=== PATIENT | male | born 1995 | race Caucasian/White ===

== ENCOUNTER 2019-01-30 16:18 | Emergency (ER) | payer MEDICAID, SELFPAY ==
[2019-01-30 16:34] VITALS: BP 159/99; PULSE 117; RESP 16; TEMP 37.2; O2SAT 97
[2019-01-30 16:38] VITALS: RESP 16
--- NOTE | 2019-01-30 16:50 | ED.GENADUL_ITS ---
Discharge Plan Disposition Patient Disposition: HOME Condition: Stable Discharge Details Chief Complaint: GenMedical Clinical Impression: Cough, Vomiting and diarrhea Primary Care Provider: Jf Ivory ED Provider: Hanna Tipton Home Meds and New Rx's Prescriptions: New ondansetron 4 mg tablet,disintegrating 4 mg PO Q8H PRN (Reason: nausea and vomiting) Qty: 6 RF: 0 Continued acetaminophen [Tylenol Extra Strength] 500 mg Tablet 500 mg PO Q6H PRNRF: 0 ibuprofen 600 mg Tablet 600 mg PO TID RF: 0 Discharge Instructions Instructions: Acute Nausea and Vomiting (ED), Acute Diarrhea (ED), Viral Syndrome (ED), Acute Cough (ED) Additional Instructions: Please return immediately to the emergency department if you develop any new or worsening symptoms or if you become otherwise concerned. It is extremely important that you make an appointment to be seen in follow-up for this visit as soon as possible by your primary care doctor. Stand Alone Forms: School Release Referrals: Jf Ivory MD [Primary Care Provider] - Discharge Data Discharge Date/Time-TO BE ENTERED AT DEPARTURE: 01/30/19 18:50 Medical Decision Making Francesco Pack is a 23 y/with history ofo man obesity and anxiety who presented to the emergency department with 5 days of cough, sore throat now resolved, ear pain, vomiting, and diarrhea now resolved. On exam patient is very well- appearing. Mildly tachycardic, otherwise benign cardiopulmonary exam. Benign abdominal exam. Concern for likely viral illness less likely pneumonia. Exam/history is not consistent with meningitis, acute intracranial process, Alexx's angina or other deep space infection, sepsis, ACS, PE. Plan for chest x-ray, flu swab, p.o. Zofran. Patient drinking cups of water in the emergency department without issue prior to receiving Zofran. X-ray flu swab negative. Patient has continued to drink water in the emergency department without issue. He reports that he feels very well after Zofran and would like to go home. He requests a note for school. I had a lengthy discussion with the patient regarding return to emergency department precautions, and importance of outpatient follow-up with his PCP. Patient verbalized understanding of the plan and is amenable. HR 108 at d/c, which Pt reports is his baseline, stating my heart rate is always between 100 and 120 even at rest. Medical Records Medical records reviewed: Yes I reviewed the patient's medical records. Imaging Data Radiologic Study: Attestation: I personally reviewed and interpreted this imaging study as follows: Radiologist's impression: XR of the chest, 2 views. COMPARISON: No relevant prior studies available. FINDINGS: The cardiomediastinal silhouette and pulmonary vasculature are within normal limits. The lungs are clear. No pleural effusion or pneumothorax is identified. IMPRESSION: No acute process. Lab Data Lab results reviewed: Yes I reviewed the patient's lab results. Negative flu swab HPI General Mode of arrival: ambulatory . Date/Time Provider Initiated Documentation: 01/30/19 16:36 . Limitations to Documentation: no limitations . Information obtained by: patient . HPI Narrative: Francesco Pack is a 23 y/o man with history of anxiety, obesity presents emergency department with cough, vomiting, diarrhea, sore throat, right-sided ear pain over the past 5 days. Patient reports that he has been able to hold down fluids without issue, but has felt nauseous when trying to eat food. He has had 2-3 episodes of loose stools, but this seems to have resolved. Sore throat present during initial phase of illness, but has been resolved for the past 2-3 days. He denies any current pain other than ear pain. No fevers, no shortness of breath, no rash. Related Data Home Medications Medication Instructions Recorded Confirmed acetaminophen [Tylenol Extra 500 mg PO Q6H PRN 01/30/19 01/30/19 Strength] ibuprofen 600 mg PO TID 01/30/19 01/30/19 ondansetron 4 mg PO Q8H PRN #6 tab 01/30/19 Previous Rx's Medication Instructions Recorded ondansetron 4 mg PO Q8H PRN #6 tab 01/30/19 Allergies Allergy/AdvReac Type Severity Reaction Status Date / Time No Known Allergies Allergy Unverified 01/30/19 16:37 General Stated Complaint: GenMedical SUSY: 3 Review of Systems Review of Systems Constitutional: denies fevers Eyes: denies eye pain ENT: denies facial pain, dental pain, reports ear pain, sore throat now resolved Cardiovascular: denies chest pain, edema Respiratory: denies SOB, reports cough GI: denies abdominal pain, reports vomiting, diarrhea now resolved : denies flank pain MSK: denies back pain, neck pain, arthralgias, myalgias Skin: denies rash Neuro: denies numbness, weakness, , reports intermittent mild headache not currently occurring [facility] Medical History Asthma Obesity Family History Mother No problems noted. Father Essential hypertension Heart disease Grandfather Essential hypertension Heart disease Hyperlipidemia Myocardial infarction Grandfather No problems noted. Grandmother No problems noted. Grandmother No problems noted. Maternal History Diabetes Neoplasm Social History Smoking/Tobacco Use Status: Never Drug use: Never Do you feel safe in your relationship?: Yes Exam Narrative Exam Narrative: Constitutional: well and yrn-mfywx-zyhzdujpa, pleasant, conversing normally HENT: head atraumatic/normocephalic/normal inspection, mucous membranes moist normal posterior pharynx,, normal voice, handling secretions without issue, no intraoral lesion, uvula midline, normal external ears, normal TMs and canals bilaterally, no mastoid tenderness bilaterally, no TMJ tenderness bilaterally Eyes: conjunctiva normal, sclera normal, pupils 3mm b/l Neck: no stridor, normal ROM, trachea midline Chest: normal inspection Resp: normal work of breathing, LCTAB Cardio: HR 104, normal rhythm, no murmur appreciated GI: abdomen soft, non-tender, non-distended Back: normal inspection, no rash Skin: warm, dry, normal color, no rash Neuro: alert, not altered, grossly non-focal, normal tone Ext: no edema Psych: normal mood, normal affect, normal behavior Course Vital Signs Temperature 37.2 C 01/30/19 16:34 Pulse 117 H 01/30/19 16:34 Respiratory Rate 16 01/30/19 16:34 Blood Pressure 159/99 H 01/30/19 16:34 Pulse Oximetry 97 01/30/19 16:34 Temperature 37.2 C 01/30/19 16:34 Temperature Source Temporal Artery Scan 01/30/19 16:34 Pulse 117 H 01/30/19 16:34 Respiratory Rate 16 01/30/19 16:38 Respiratory Effort Non-Labored 01/30/19 16:38 Respiratory Depth Normal 01/30/19 16:38 Respiratory Pattern Normal 01/30/19 16:38 Blood Pressure 159/99 H 01/30/19 16:34 Pulse Oximetry 97 01/30/19 16:34 Pain Level 5 01/30/19 16:34
[2019-01-30 17:23] VITALS: PULSE 117
--- NOTE | 2019-01-30 17:35 | DI.RAD_ITS ---
SYMPTOM/DIAGNOSIS: COUGH PA AND LATERAL CHEST: Comparison is made with 04/18/08. The heart is normal in size. The lungs are clear. The mediastinal structures and pleura appear intact. CONCLUSION: Normal chest.
--- NOTE | 2019-01-30 17:54 | DI.VRAD_ITS ---
EXAM: XR Chest, 2 Views EXAM DATE/TIME: 01/30/2019 5:15 PM CLINICAL HISTORY: 23 years old, male; Signs and symptoms; Cough TECHNIQUE: XR of the chest, 2 views. COMPARISON: No relevant prior studies available. FINDINGS: The cardiomediastinal silhouette and pulmonary vasculature are within normal limits. The lungs are clear. No pleural effusion or pneumothorax is identified. IMPRESSION: No acute process. Dictated and Authenticated by: Kris Gregg MD. Ordering:SKIP Ferreira MD
== END 2019-01-30 18:50 | disposition home or self-care (01) ==
PROVIDERS: Emergency Provider Student in an Organized Health Care Education/Training Program; PCP Pediatrics
DX: R05 Cough (principal); R11.2 Nausea with vomiting, unspecified; R19.7 Diarrhea, unspecified; J02.9 Acute pharyngitis, unspecified; H92.01 Otalgia, right ear
CPT/HCPCS: 87449; 99283; 71046

== ENCOUNTER 2019-03-28 01:25 | Outpatient (CLI) | payer MEDICAID, SELFPAY ==
[2019-03-28 07:58] LABS: HCT 45.2 % (40.0-50.0); HGB 15.8 g/dL (13.5-17.5); Mean Corpuscular Volume 85.9 fL (80-95); Mean Platelet Volume 11.4 fL (8.0-11.0); Platelet Count 174 x1000/uL (130-400); RBC 5.26 m/cumm (4.50-6.00); RBC Distribution Width 13.9 % (11.8-14.1); White Blood Cell Count 6.13 k/cumm (4.4-10.8)
[2019-03-28 08:40] LABS: Hemoglobin A1C 5.1 % (4.5-6.2)
[2019-03-28 08:46] LABS: ALT 153 U/L (12-78); AST 59 U/L (15-37); Albumin 3.6 g/dL (3.4-5.0); Alkaline Phosphatase 78 U/L (46-116); Anion Gap 9.4 mmol/L (3-11); BUN 13 mg/dL (7-18); Bilirubin, Total 0.6 mg/dL (0.2-1.0); CO2 28.6 mmol/L (21.0-32.0); CREATININE 0.89 mg/dL (0.70-1.30); Calcium 8.9 mg/dL (8.5-10.1); Chloride 104 mmol/L (98-107); Glucose 87 mg/dL (70-100); Potassium 3.9 mmol/L (3.5-5.1); Sodium 142 mmol/L (136-145); Total Protein 6.8 g/dL (6.4-8.2)
== END 2019-03-28 01:45 ==
PROVIDERS: PCP Family Medicine; Visit Provider Family Medicine
DX: L83 Acanthosis nigricans (principal); R94.5 Abnormal results of liver function studies
CPT/HCPCS: 36415; 80053; 85027; 83036

== ENCOUNTER 2019-04-24 00:52 | Outpatient (CLI) | payer MEDICAID, SELFPAY ==
--- NOTE | 2019-04-24 08:03 | DI.US_ITS ---
SYMPTOM/DIAGNOSIS: ELEVATED LFT'S. R94.5 ABDOMEN ULTRASOUND: The aorta is unremarkable. The vena cava is obscured. The liver is enlarged and is echogenic consistent with fatty infiltration. The gallbladder wall is 2.8 mm. thick. No Castro's sign was elicited. There is no evidence of ductal dilatation. The pancreas is obscured by bowel gas. The spleen measures 10.7 cm. in length. The kidneys are unremarkable. There is no evidence of abdominal free fluid. SUMMARY: An enlarged fatty liver is demonstrated. There is gallbladder wall thickening without evidence of stones or findings to suggest acute cholecystitis.
[2019-04-24 10:08] LABS: Iron 112 ug/dL (50-175); Total Iron Binding Capacity 370 ug/dL (250-450); Transferrin Sat 30 % (20-55)
[2019-04-24 10:22] LABS: Ferritin 162 ng/mL (8-388)
[2019-04-25 11:28] LABS: HBs Antibody, Qual Negative; HBs Antibody, Quant <3.1 mIU/mL; Hepatitis B Core Antibody Negative (NEGAT); Hepatitis B surface Ag Negative (NEGAT); Hepatitis C Ab w Rflx HCV PCR Negative (NEGAT)
== END 2019-04-24 01:12 ==
PROVIDERS: PCP Family Medicine; Visit Provider Family Medicine
DX: R94.5 Abnormal results of liver function studies (principal); K76.0 Fatty (change of) liver, not elsewhere classified; R16.0 Hepatomegaly, not elsewhere classified; K82.8 Other specified diseases of gallbladder
CPT/HCPCS: 36415; 86704; 86706; 86803; 87340; 76700; 82728; 83540; 83550

== ENCOUNTER 2019-04-30 08:04 | Outpatient (CLI) | payer MEDICAID, SELFPAY ==
[2019-04-30 16:33] LABS: TSH (W/Ref FT4) 1.44 uIU/mL (0.358-3.74)
[2019-05-03 11:15] LABS: IgA 124 mg/dL (85-499); Interpretation SEE COMMENTS; Tissue Transglutaminase IgA <1.2 U/mL (<4.0)
== END 2019-04-30 08:24 ==
LOC: LBO 08:22 → LOS 14:53
PROVIDERS: PCP Family Medicine; Visit Provider Family Medicine
DX: R16.0 Hepatomegaly, not elsewhere classified (principal); R94.5 Abnormal results of liver function studies
CPT/HCPCS: 36415; 82784; 83516; 84443

== ENCOUNTER 2021-05-12 04:27 | Outpatient (CLI) | payer MEDICAID, SELFPAY ==
[2021-05-12 09:33] LABS: Hemoglobin A1C 5.1 % (<5.7)
[2021-05-12 09:49] LABS: Calculated LDL 102 mg/dL (<100); Cholesterol 162 mg/dL (<200); HDL Cholesterol 38 mg/dL (40-60); Triglyceride 114 mg/dL (<150)
== END 2021-05-12 04:28 | disposition home or self-care (01) ==
LOC: LBO 04:27
PROVIDERS: PCP Nurse Practitioner Family; Visit Provider Nurse Practitioner Family
DX: Z13.1 Encounter for screening for diabetes mellitus (principal); Z13.220 Encounter for screening for lipoid disorders
CPT/HCPCS: 36415; 80061; 83036

== ENCOUNTER → 2022-07-12 17:50 | Outpatient (CLI) | payer MEDICAID, SELFPAY ==
--- NOTE | 2022-07-12 18:00 | DI.RAD_ITS ---
Exam(s) XR LUMBAR SPINE COMPLETE EXAM: XR LUMBAR SPINE COMPLETE CLINICAL HISTORY: vertebral alignment.lumbar back pain, ,m54.50 TECHNIQUE: COMPARISON: No exams were available for comparison FINDINGS: Eight views were obtained. There is a mild biconvex thoracolumbar scoliosis. No evidence of spondyl olysis or spondylolisthesis. There is a question of loss of height of L5-S1 intervertebral disc spac e raising the possibility of disc degeneration. Otherwise intervertebral disc spaces are fairly well maintained. No evidence of acute fracture. IMPRESSION: Question degenerative disc disease at L5-S1. RADIATION DOSE DELIVERED: Total DLP
--- NOTE | 2022-07-12 19:04 | DI.VRAD_ITS ---
PROCEDURE INFORMATION: Exam: XR Lumbosacral Spine Exam date and time: 07/12/2022 6:10 PM Age: 27 years old Clinical indication: Low back pain; Patient HX: Vertebral alignment TECHNIQUE: Imaging protocol: Radiologic exam of the lumbosacral spine. Views: 4 or 5 views. COMPARISON: No relevant prior studies available. FINDINGS: Mild thoracolumbar dextrocurvature. Questionable right pars interarticularis defect at L4-L5. No other pars interarticularis defects appreciated. Preserved lumbar lordosis. Decreased intervertebral disc spaces at T12-L1, L1-L2, L2-L3, and L5-S1. Remainder of the disc spaces appear well preserved. Tiny multilevel anterior osteophytes. Vertebral body heights are well preserved. Spinal canal is patent. No acute fracture, dislocation, or aggressive osseous lesion. No acute soft tissue findings. IMPRESSION: 1. Mild thoracolumbar dextrocurvature with mild multilevel degenerative changes, detailed above. 2. No acute skeletal pathology. Dictated and Authenticated by: Zachery Ruiz MD. Ordering:TONO Wright MD
== END ==
PROVIDERS: PCP Nurse Practitioner Family; Visit Provider Nurse Practitioner Family
DX: M47.815 Spondylosis without myelopathy or radiculopathy, thoracolumbar region; M47.816 Spondylosis without myelopathy or radiculopathy, lumbar region; M47.817 Spondylosis without myelopathy or radiculopathy, lumbosacral region
CPT/HCPCS: 72110

== ENCOUNTER 2022-10-06 04:42 | Outpatient (CLI) | payer MEDICAID, SELFPAY ==
[2022-10-06 12:54] LABS: Abs Immature Grans 0.03 10^3/uL (0.0-0.06); Absolute Basophil Count 0.06 10^3/uL (0.0-0.2); Absolute Eosinophil Count 0.11 10^3/uL (0.0-0.7); Absolute Lymphocyte Count 1.73 10^3/uL (1.2-3.4); Absolute Neutrophil Count 3.22 10^3/uL (1.2-6.7); Basophils % 1.1; HCT 47.2 % (40.0-50.0); HGB 15.9 g/dL (13.5-17.5); Immature Grans % 0.6; Lymphocytes % 31.7; MCH 29.8 pg (27.0-33.0); MCHC 33.7 % (32.0-36.0); MCV 89 fL (80-95); MPV 11.7 fL (8.0-11.0); Monocytes % 5.5; Neutrophils % 59.1; Platelet Count 221 10^3/uL (130-400); RBC 5.33 10^6/uL (4.36-5.78); RDW 13.7 % (11.8-14.1); RDW-SD 43.9 fL; WBC 5.45 10^3/uL (4.4-10.8)
[2022-10-06 13:07] LABS: Hemoglobin A1C 5.1 % (<5.7)
[2022-10-06 13:13] LABS: ALT 96 U/L (16-63); AST 44 U/L (15-37); Albumin 3.6 g/dL (3.4-5.0); Alkaline Phosphatase 71 U/L (46-116); Anion Gap 1.5 mmol/L (3-11); BUN 13 mg/dL (7-18); Bilirubin, Total 0.5 mg/dL (0.2-1.0); CO2 32.5 mmol/L (21.0-32.0); Calcium 9.6 mg/dL (8.5-10.1); Calculated LDL 112 mg/dL (<100); Chloride 105 mmol/L (98-107); Cholesterol 171 mg/dL (<200); Estimated GFR 107.12 (mL/min/1.73m2); Glucose 88 mg/dL (74-106); HDL Cholesterol 43 mg/dL (40-60); Potassium 4.1 mmol/L (3.5-5.1); Sodium 139 mmol/L (136-145); TSH (W/Ref FT4) 1.11 uIU/mL (0.36-3.74); Total Protein 7.3 g/dL (6.4-8.2); Triglyceride 83 mg/dL (<150)
== END 2022-10-06 04:43 | disposition home or self-care (01) ==
LOC: LOS 04:42
PROVIDERS: PCP Nurse Practitioner Family; Visit Provider Nurse Practitioner Family
DX: E66.01 Morbid (severe) obesity due to excess calories (principal); H53.9 Unspecified visual disturbance; R03.0 Elevated blood-pressure reading, without diagnosis of hypertension; Z68.43 Body mass index [BMI] 50.0-59.9, adult
CPT/HCPCS: 36415; 80053; 80061; 83036; 84443; 85025

== ENCOUNTER → 2022-10-07 00:27 | Outpatient (CLI) | payer MEDICAID, SELFPAY ==
--- OUTSIDE RECORDS SUMMARY | 2022-10-07 00:43 | XMS_ITS | Encounter Summary ---
:1995 Author Care Team Providers Name Role Phone Garry Walden Primary Care Provider [phone] Garry Walden FORENSICS ANALYST Primary Care Provider [phone] Garry Walden Referring Provider [phone] Reason for Visit pain in feet Assessment and Plan 1. Osteoarthritis of joint of right ank le and/or foot Assessment: Review x-rays taken of the right and left foot demonstrate significant tarsal tarsal joint osteoarthritic destruction in the right and left foot. There are large calcaneal spurs noted at th e Achilles tendon insertions bilaterally . Clinical examination correlates with these findings. Plan: Recommendations were given for thi s patient to obtain custom orthotics to control tarsal joint motion and provide medial longitudinal arch support. Follow-up in this clinic when these orthotics have been fabricated through [employer]. ? custom foot orthotic 2. Osteoarthritis of left foot 3. Calcaneal spur of right foot 4. Calcaneal spur of left foot Discussion Note: None recorded.Patient educational handouts: No information available. Plan of Care Reminders Provider Appointments None recorded. ? ? Lab None recorded. ? ? Referral None recorded. ? ? Procedures None recorded. ? ? Surgeries None recorded. ? ? Imaging None recorded. ? ? Medications Name Start Date ? ? acetaminophen ? extra strength, 500 mg, every 6 hours as needed cyclobenzaprine ? 10mg tablet, take at bedtime as needed for muscle spa sms ibuprofen 600 mg tablet ? Take 1 tablet 3 times a day by oral route. lidocaine 5 % medicated patch and dimethicone 5 % topi saul cream ? daily Medications Administered None recorded. Vitals None recorded. Results Lab Results None recorded. Allergies Code Code System Name Reaction Severity Onset NKDA ? ? ? Problems Name Status Onset Date Source ? Osteoarthritis of Joint of Right Ankle And/or Foot Active 08/11/2022 ? Osteoarthritis of Left Foot Active 08/11/2022 ? Calcaneal Spur of Right Foot Active 08/11/2022 ? Calcaneal Spur of Left Foot Active 08/11/2022 ? Morbid Obesity Active ? ? Non-alcoholic Fatty Liver Active ? ? Acanthosis Nigricans Active ? ? Elevated Blood Pressure Active ? ? Bilateral Hyperacusis of Ears Active ? ? Procedures Date Name Performed by ? 08/03/2022 XR, Foot, 3 or More View [facility] - Radiology [address] [place] [address] (Work Place) 08/03/2022 XR, Foot, 3 or More View [facility] - Radiology [address] [place] [address] (Work Place) Vaccine List Vaccine Type Tdap 05/09/2022 Social History Tobacco Smoking Status Never Smoker What is your code status? 0 Family History Relation Problem Onset Age of Age Notes Father Hypertensive disorder (No N/A heart disease Information) Paternal Hyperlipidemia (No N/A hypertension and Grandfather Information) heart disease a nd myocardial infarction Functional Status Unknown. Past Encounters 08/11/2022 Osteoarthritis of Joint of Right Ankle A nd/or Foot; Osteoarthritis of Left Foot; Calcaneal Spur of Right Foot; Calcaneal Spur of Left Foot Isaiah Thao, DPM: [address] [place] [address], Ph. History of Present Illness Note: <div>This is a 27-year-old male patient who is seen today for prolonged period of weightbearing pain in the right and left foot with activities of daily living. He endorses no specific history of injury or trauma to his lower extremities. He has persistent pain within the arches bilaterally both dorsally and plantarly. He has tried ndia-spx-ekaznae liners for his shoes and orthotic supports that have been ineffective in providing relief.</div> Review of Systems ? Notes: <div>All negative except for HPI</div> Physical Exam ? Notes: <div>Constitutional: well de veloped, appears stated age, well nourished, no acute distress, alert and or iented to time, place and person, weight-morbidly obese</div><div>
</div><d iv>Psychiatric: Mental status-mood and affect normal, behavior normal,cogn ition and thought content normal, fund of knowledge is intact, attenti on span and ability to concentrate is normal, able to articulate well with norm al speech and language</div><div>
</div ><div>Respiratory: Non labored respiratory effort, chest-symmetrical ex pansion, no respiratory distress, no adventitious sounds, no shortness of ashley th, respiration rate of 16</div><div>
</div><div> Vascular: </div><div>Dorsalis pedis and posterior tibial pulses are full and p alpable bilaterally. The feet are warm to touch with 1-2 second vascular zheng ling time at the digit levels. Digital hair is present bilaterally. No veno us varicosities are noted on the lower legs, ankles or feet. No ischemia is noted within the legs or pedal structures.</div><div>
</ div><div>Lymphatic: no lymphedema noted</div><div>
</div><d iv>Dermatologic: There is no evidence of any breaks in skin integrity or skin lesions on the lower legs, ankles or feet. There is normal skin texture and turgor on all extremities surfaces. There is no evidence of cellulitic or lymphangitic activities on the digits, feet, ankles or lower legs.</div>< div>
</div><div>Neurologic: Alert and oriented times 3, concentrating abili ty not decreased, symmetrical bulk, strength and tone in the lower extremitie s, coordination is normal.</div><div>Sensory examination-light touch inta ct on the L4-S1 dermatomes</div><div>Motor examination-full intact</div ><div>Coordination and tremors-no intentional or resting tremors are noted, n o adventitious movement noted</div><div>Muscle fasciculations-no fasciculat ions noted in the lower extremity muscles</div><div>Atrophy-no atrophy noted in the intrinsic muscles of the feet, lower legs or thighs & lt;/div><div>
</div><div>Musculoskeletal: Able to rise from a chair and get up onto the orthopaedic examination table, mild osteoarthritic change can be palpated on the dorsal tarsal joints of the right and left foot with soft tiss ue effusion and osteophytic growth noted. Slight enlargement of the Achilles tendon insertions are noted on the posterior right and left calcaneal surfaces. There is no evidence of any metatarsophalangeal joint or tarsometatarsal denise nt pain on the right or left foot. There is a pes planus foot type on weightbe aring examination</div><div>
</div><div>Gait: Pronated gait type that is n on antalgic</div><div>This clinic note/operative note was created using [employer] voice recognition software. The note was reviewed by myself for p rimary content. There may be multiple small syntactical discrepancies an d errors due to the voice recognition limitations of the software-Dr. Thao.< /div><div>
</div>
--- OUTSIDE RECORDS SUMMARY | 2022-10-07 00:43 | XMS_ITS ---
:1995 Author Care Team Providers Name Role Phone FATIMAH MARIN Primary Care Provider [phone] FATIMAH MARIN Referring Provider [phone] FATIMAH MARIN DRY HOUSE OPERATOR Primary Care Provider [phone] Allergies Code Code System Name Reaction Severity Status Onset NKDA ? Medications Name Status Start Date Stop Date ? ? acetaminophen Active ? Not available extra strength, 500 mg, every 6 hours as needed acetaminophen 500 mg capsule Completed ? Take 2 capsules every 6 hours by oral route as needed. cyclobenzaprine Active ? Not available 10mg tablet, take at bedtime as needed for muscle spasms cyclobenzaprine 10 mg tablet Completed ? Take 1 tablet every day by oral route at bedtime. ibuprofen 600 mg tablet Active ? Not avai lable Take 1 tablet 3 times a day by oral route. lidocaine 0.5 %-me.salicyl 20 %-capsai 0.035 %-menth 5 % topical patch Completed ? 08/16/2022 Apply every 12 hours lidocaine 5 % medicated patch and dimethicone 5 % topical cream Active ? Not available daily Problems Name Status Onset Date Source ? [...] 08/03/2022 XR, Foot, 3 or [facility] - Radiology [address] [place] [id number] (Work Place) 08/03/2022 XR, Foot, [facility] or [facility] - [facility] [address] [place] [address] (Work Place) Results Lab Results None recorded. Past Encounters 08/11/2022 Osteoarthritis of Joint of Right Ankle A nd/or Foot; Osteoarthritis of Left Foot; Calcaneal Spur of Right Foot; Calcaneal Spur of Left Foot Isaiah Thao, DPM: [address] [place] [address], Ph. Social History Tobacco Smoking Status Never Smoker Vaccine List Vaccine Type Tdap 05/09/2022 Plan of Care Reminders Provider Appointments None recorded. ? ? Lab None recorded. ? ? Referral None recorded. ? ? Procedures None recorded. ? ? Surgeries None recorded. ? ? Imaging None recorded. ? ? Vitals None recorded.
--- NOTE | 2022-10-07 07:45 | DI.US_ITS ---
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 TECHNIQUE: Ultrasound carotids performed using grayscale, color-flow, and spectral Doppler imaging. COMPARISON: US US ABDOMEN from 04/24/2019 FINDINGS: CAROTID ARTERIES: Patent bilaterally with no evidence of obvious plaque at the carotid bifurcations a nd proximal internal carotid arteries. No prominent tortuosity evident in the ICAs in the upper neck . However, velocities in the distal left common carotid artery in the neck exhibit slightly elevated pe ak flow of 132 cm/sec. Peak systolic velocity in the right distal common carotid artery is 125 cm/sec Elevated velocity in the proximal right external carotid artery (168 cm/sec) is probably not conseque ntial. VERTEBRAL ARTERIES: The dominant left vertebral artery is patent and exhibits antegrade flow. Luminal diameter approxima tely 4 millimeters. The right vertebral artery appears to be a significantly thinner vessel Measurements: R Bulb: 108.1cm/s PS / 22.9cm/s ED R CCA: 124.7cm/s PS / 25.1cm/s ED R ECA: 168.4cm/s PS / 17.1cm/s ED R ICA Prox: 82.1cm/s PS / 21.4cm/s ED R ICA Mid: 108.5cm/s PS / 21.1cm/s ED R ICA Distal: 67.4cm/s PS /23.7cm/s ED R Vert: 49cm/s PS / 18.4cm/s ED R SVR: 0.9 R DVR: 0.8 L Bulb: 119cm/s PS / 15.6cm/s ED L CCA: PS / 15.4cm/s ED L ECA: 84.5cm/s PS / 24.3cm/s ED L ICA Prox: 100.7cm/s PS / 24.6cm/s ED L ICA Mid: 104.2cm/s PS / 27cm/s ED L ICA Distal: 89.9cm/s PS / 35.4cm/s ED L Vert: 54.2cm/s PS / 17.8cm/s ED L SVR: 0.9 L DVR: 1 IMPRESSION: Mildly elevated velocity demonstrated in the distal left common carotid artery of possible concern al though there is no obvious plaque evident at this level Left vertebral artery is dominant. The right vertebral artery appears to be a thin vessel. Slightly elevated velocity evident in proximal right external carotid artery which is of doubtful cli nical significance. Given the history here it may be prudent to perform CT angiography of the head and neck. Criteria for Carotid Stenosis: Normal: ICA PSV <125 cm/s no plaque or intimal thickening is visible. <50% stenosis: ICA PSV <125 cm/s and plaque or intimal thickening is visible. 50-69% stenosis: ICA PSV is 125-250 cm/s and plaque is visible. >70% stenosis to near occlusion: ICA PSV >250 cm/s with visible plaque and luminal narrowing. DATA REPOSITORY:
== END ==
PROVIDERS: PCP Nurse Practitioner Family; Visit Provider Nurse Practitioner Family
DX: H53.9 Unspecified visual disturbance (principal)
CPT/HCPCS: 93880

== ENCOUNTER → 2022-10-10 10:32 | Outpatient (CLI) | payer MEDICAID, SELFPAY ==
--- NOTE | 2022-10-10 08:15 | DI.CT_ITS ---
Exam(s) CT BRAIN NECK CTA EXAM: CT BRAIN NECK CTA CLINICAL HISTORY: Left eye blackouts/ US performed and CT recom... TECHNIQUE: Imaging Protocol: Axial CT angiography was performed with multi-slice acquisition and mu lti-planar and 3D reconstructions. CONTRAST MATERIAL: Intravenous: Omnipaque 350 Contrast volume:structured data in ml Intravenous: Omnipaque 350 Contrast volume:100 mL COMPARISON: No exams were available for comparison FINDINGS: CT Head W/O and W contrast: Ventricles and Extra axial spaces: Normal in size and morphology for the patient's age. Hemorrhage: None. Cerebral parenchyma: Normal. Midline shift: None. Brainstem/Cerebellum: Normal. Calvarium: Normal. Visualized Paranasal sinuses/Mastoids: Clear. Soft Tissues: Unremarkable. Enhancement: Normal. Exam is somewhat limited by patient body habitus. CTA Brain W: Internal Carotid Arteries: Petrous: Normal. Cavernous: Normal. Cerebral: Normal. Middle Cerebral Arteries: Right: No aneurysm, occlusion or significant stenosis. Left: No aneurysm, occlusion or significant stenosis. Anterior Cerebral Arteries: Right: No aneurysm, occlusion or significant stenosis. Left: No aneurysm, occlusion or significant stenosis. Posterior cerebral Arteries: Right: No aneurysm, occlusion or significant stenosis. Left: No aneurysm, occlusion or significant stenosis. Vertebral Arteries: Right: No aneurysm, occlusion or significant stenosis. Left: No aneurysm, occlusion or significant stenosis. Basilar Artery: No aneurysm, occlusion or significant stenosis. CTA Neck W: Common Carotid: Right: No visible plaque. No aneurysm, occlusion or significant stenosis. Left: No visible plaque. No aneurysm, occlusion or significant stenosis. External Carotid: Right: No aneurysm, occlusion or significant stenosis. Left: No aneurysm, occlusion or significant stenosis. Internal Carotid: Right: Tortuous distally. No aneurysm, occlusion or significant stenosis. Left: Tortuous distally. No aneurysm, occlusion or significant stenosis. Vertebral Artery: Right: Terminates in PICA. No aneurysm, occlusion or significant stenosis. No evidence of dissecti on. Left: Left vertebral artery is dominant. No aneurysm, occlusion or significant stenosis. No evidence of dissection. IMPRESSION: 1. Normal CTA examination of the [place] of [place]. 2. Unremarkable CT Head. 3. Normal CTA examination of the neck. RADIATION DOSE DELIVERED: 2,885.08mGy.cm Total DLP 2,885.08mGy.cm Total DLP DATA REPOSITORY: All CT scans at this facility are submitted to the National Radiology Data Registry (NRDR) Dose Index Registry (DIR) with the [employer] (ACR). RADIATION OPTIMIZATION: All CT scans at this facility use at least one of these dose optimization te chniques: automated exposure control; mA and/or kV adjustment per patient size (includes targeted exa ms where dose is matched to clinical indication); or iterative reconstruction.
== END ==
PROVIDERS: PCP Nurse Practitioner Family; Visit Provider Nurse Practitioner Family
DX: H53.9 Unspecified visual disturbance (principal)
CPT/HCPCS: 70496; 70498

== ENCOUNTER 2022-11-10 16:38 | Emergency (ER) | payer OTHER, SELFPAY ==
[2022-11-10 16:43] VITALS: BP 154/76; PULSE 68; RESP 16; TEMP 37.2; O2SAT 100
--- NOTE | 2022-11-10 17:00 | DI.RAD_ITS ---
Exam(s) XR WRIST LT COMPLETE EXAM: XR WRIST LT COMPLETE CLINICAL HISTORY: pain post fall. TECHNIQUE: 2D digital imaging was performed. COMPARISON: No exams were available for comparison FINDINGS: 3 views No evidence of fracture nor dislocation. No significant ulnar variance. Scaphoid unremarkable. Sca pholunate distance unremarkable. Bone density normal. No osseous lesions. No radiopaque foreign amalia dy. IMPRESSION: No significant osseous findings. DATA REPOSITORY: RADIATION DOSE DELIVERED:
--- NOTE | 2022-11-10 17:00 | DI.RAD_ITS ---
Exam(s) XR RIBS RT W PA LAT CHEST EXAM: XR RIBS RT W PA LAT CHEST CLINICAL HISTORY: right rib pain post fall TECHNIQUE: 2D digital imaging was performed. COMPARISON: CR XR CHEST 2V PA LATERAL from 01/30/2019 FINDINGS: Total = 5 views RIBS 3 VIEWS-right There are no obvious acute rib fractures evident. No lytic rib lesions identified. CXR- 2 VIEWS: No lung contusion or pneumothorax. There is no pleural effusion evident. Heart size is normal and there is no significant mediastinal widening. IMPRESSION: 1. No obvious rib fractures evident. Also no significant rib lesions. 2. No ipsilateral lung nor pleural abnormality evident. No pneumothorax. DATA REPOSITORY: RADIATION DOSE DELIVERED:
[2022-11-10] MEDS: Acetaminophen 325 MG TAB 650 MG PO (17:49)
--- NOTE | 2022-11-10 19:12 | NUR.NOTE ---
Pt to x-ray via w/c Nursing Note:
--- NOTE | 2022-11-10 19:43 | DI.VRAD_ITS ---
PROCEDURE INFORMATION: Exam: XR Left Wrist Exam date and time: 11/10/2022 7:15 PM Age: 27 years old Clinical indication: Other: Pain post fall TECHNIQUE: Imaging protocol: Radiologic exam of the Left wrist. Views: 3 or more views. COMPARISON: No relevant prior studies available. FINDINGS: Bones/joints: Normal. Soft tissues: Normal. IMPRESSION: No acute findings. Dictated and Authenticated by: Terence Butler MD. Ordering:DEVONTE Alvarado MD
--- NOTE | 2022-11-10 19:47 | DI.VRAD_ITS ---
PROCEDURE INFORMATION: Exam: XR Right Ribs Exam date and time: 11/10/2022 7:18 PM Age: 27 years old Clinical indication: Other: Right rib pain post fall TECHNIQUE: Imaging protocol: Radiologic exam of the Right ribs. Views: 2 views. COMPARISON: CR XR CHEST 2V PA LATERAL 01/30/2019 5:29 PM FINDINGS: Bones/joints: Normal. Soft tissues: Normal. IMPRESSION: No acute findings. PROCEDURE INFORMATION: Exam: XR Chest Exam date and time: 11/10/2022 7:18 PM Age: 27 years old Clinical indication: Other: Right rib pain post fall TECHNIQUE: Imaging protocol: Radiologic exam of the chest. Views: 2 views. COMPARISON: CR XR CHEST 2V PA LATERAL 01/30/2019 5:29 PM FINDINGS: Lungs: Clear lungs. Pleural spaces: No pleural effusion. No pneumothorax. Heart/Mediastinum: Normal heart size. Bones/joints: Thoracic spine degenerative disease. IMPRESSION: Clear lungs and pleural space. No acute disease. Dictated and Authenticated by: Terence Butler MD. Ordering:DEVONTE Alvarado MD
--- NOTE | 2022-11-10 19:59 | ED.GENADUL_ITS ---
Discharge Plan Disposition Patient Disposition: Home Condition: Stable Discharge Details Clinical Impression: Muscle strain of left wrist, Contusion of chest wall Primary Care Provider: Garry Walden ED Provider: Jenny Morin Home Meds and New Rx's Prescriptions: Continued magnesium oxide 500 mg capsule 500 mg PO DAILY Qty: 90 0RF ibuprofen 600 mg tablet 600 mg PO TID PRN (Reason: pain) Qty: 180 3RF acetaminophen [Tylenol Extra Strength] 500 mg Tablet 500 mg PO Q6H PRN Discharge Instructions Instructions: Muscle Strain (ED), Contusion in Adults (ED) Additional Instructions: Take ibuprofen and Tylenol as needed for pain Continue to take deep breaths so you do not develop pneumonia Is a rest as tolerated Repeat x-ray in 1 week with persistent pain Return earlier should he have new or worsening complaints Stand Alone Forms: Work Release Referrals: Garry Walden, RACE RELATIONS ADVISER [Primary Care Provider] - Medical Decision Making This 27-year-old gentleman with history of asthma presents status post fall yesterday at work down 3 steps No visible head injury or neck pain Chest x-ray does not show evidence of acute abnormality, specifically no pneumothorax radiology interpretation my review No respiratory distress Left wrist without evidence of acute abnormality per x-ray interpretation my review Given a wrist splint Given several tabs of oxycodone with risk of addiction reviewed Ibuprofen and Tylenol as needed for pain Repeat x-ray in 1 week with persistent discomfort recommended Extremity condition with stable vitals Medical Records Medical records reviewed: Yes I reviewed the patient's medical records. HPI General Date/Time Provider Initiated Documentation: 11/10/22 17:02 . HPI Narrative: This 27-year-old male presents status post fall on icy steps at work yesterday. Fell down 3 stairs. Landed on his right ribs and left wrist. Has persistent pain since that time. Denies headache, numbness, tingling. Denies loss of consciousness, nausea, vomiting. Related Data Home Medications Medication Instructions Recorded Confirmed acetaminophen 500 mg tablet 500 mg PO Q6H PRN 01/30/19 11/10/22 (Tylenol Extra Strength) magnesium oxide 500 mg capsule 500 mg PO DAILY #90 caps 10/13/22 11/10/22 ibuprofen 600 mg tablet 600 mg PO TID PRN pain #180 tabs 11/09/22 11/10/22 Previous Rx's Medication Instructions Recorded magnesium oxide 500 mg capsule 500 mg PO DAILY #90 caps 10/13/22 ibuprofen 600 mg tablet 600 mg PO TID PRN pain #180 tabs 11/09/22 Allergies Allergy/AdvReac Type Severity Reaction Status Date / Time No Known Allergies Allergy Verified 11/10/22 16:49 General Stated Complaint: Trauma SUSY: 3 Review of Systems All systems reviewed & are unremarkable except as noted in HPI and below PFSH All Active Problems Muscle strain of left wrist (Acute) Contusion of chest wall (Acute) Migraine (Chronic) Vision changes (Acute) Low back pain (Acute) Morbid obesity with BMI of 50.0-59.9, adult (Acute) NAFLD (nonalcoholic fatty liver disease) (Acute) Acanthosis nigricans (Acute 11/21/17) Neck and abdomen Elevated blood pressure reading (Acute 11/21/17) 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 Hearing test pending. Learning disability (Acute 11/21/17) IEP Medical History (Updated 11/10/22 @ 19:53 by WENDY Bar) Asthma As a young child. Not a current problem Obesity Family History Mother No problems noted. Father Essential hypertension Heart disease Grandfather Essential hypertension Heart disease Hyperlipidemia Myocardial infarction Grandfather No problems noted. Grandmother No problems noted. Grandmother No problems noted. Maternal History Diabetes Neoplasm colon and breast cancer Social History (Updated 05/10/22 @ 08:27 by Nara Denton) Smoking/Tobacco Use Status: Never Smoking risk assessment performed?: Yes Alcohol Intake: never Drug use: Never Caregiver/Support person: No Household members: family Housing: house Communication Needs: None Do you need help understanding health information?: Never Pets and animals: Yes Pets and animals: cat(s) and dog(s) Sexually active: No Do you think of yourself as: bisexual Current gender identity: male Do you belong to any clubs or organized social groups?: no Panel score (0-1 are the most socially isolated patients): 0 Do you feel safe at home: Yes Do you feel safe in your relationship?: Yes Exam Const General: cooperative, comfortable and no acute distress HENMT Head: normal to inspection Neck Neck: normal visual inspection Other: The midline tenderness Resp Effort & Inspection: normal respiratory effort Auscultation: clear to auscultation bilaterally Other: Chest wall tenderness, no visible sign of trauma, no crepitus Cardio Rate: regular rate GI Inspection: normal to inspection Auscultation: normal bowel sounds Other: Nontender abdominal exam Back/Spine/Pelvis Other: No thoracic or lumbar spine tenderness to Skin General skin exam: no rashes or lesions noted Neuro General: patient alert and patient oriented x3 Other: GCS 15 Extrem Other: left wrist with tenderness, no deformity, neurovascularly intact no tenderness to left elbow Course Vital Signs Vital signs: Vital Signs Temperature 37.2 C 11/10/22 16:43 Pulse 68 11/10/22 16:43 Respiratory Rate 16 11/10/22 16:43 Blood Pressure 154/76 H 11/10/22 16:43 Pulse Oximetry 100 11/10/22 16:43 Temperature 37.2 C 11/10/22 16:43 Temperature Source Skin 11/10/22 16:43 Pulse 68 11/10/22 16:43 Respiratory Rate 16 11/10/22 16:43 Respiratory Effort Non-Labored 11/10/22 17:04 Respiratory Depth Normal 11/10/22 17:04 Respiratory Pattern Normal 11/10/22 17:04 Blood Pressure 154/76 H 11/10/22 16:43 Blood Pressure Position Sitting 11/10/22 16:43 Pulse Oximetry 100 11/10/22 16:43 Oxygen Delivery Method Room Air 11/10/22 16:43 Oxygen Flow Rate 0 11/10/22 16:43 Pain Level 7 11/10/22 16:43 Comment 11/10/22 16:43
--- NOTE | 2022-11-14 11:56 | NUR.NOTE ---
Nursing Note: Accessed chart for [facility] billing purposes
== END 2022-11-10 20:12 | disposition home or self-care (01) ==
PROVIDERS: Emergency Provider Physician Assistant; PCP Nurse Practitioner Family
DX: S66.912A Strain of unspecified muscle, fascia and tendon at wrist and hand level, left hand, initial encounter (principal); S20.211A Contusion of right front wall of thorax, initial encounter; J45.909 Unspecified asthma, uncomplicated; Y99.0 Civilian activity done for income or pay; W10.8XXA Fall (on) (from) other stairs and steps, initial encounter
CPT/HCPCS: 99284; 71046; 71100; 73110

== ENCOUNTER 2023-06-10 13:53 | Emergency (ER) | payer MEDICAID, SELFPAY ==
[2023-06-10 14:02] VITALS: BP 150/95; PULSE 77; RESP 18; TEMP 36.6; O2SAT 97
--- NOTE | 2023-06-10 14:16 | ED.GENADUL_ITS ---
Discharge Plan Discharge Details Chief Complaint: EarProblem Primary Care Provider: Garry Walden ED Provider: Cristian Miller Home Meds and New Rx's Prescriptions: No Action cyclobenzaprine 10 mg tablet 10 mg PO HS PRN (Reason: muscle spasm) Qty: 20 2RF ibuprofen 600 mg tablet 600 mg PO TID PRN (Reason: pain) Qty: 180 3RF magnesium oxide 500 mg capsule 500 mg PO DAILY Qty: 90 3RF acetaminophen [Tylenol Extra Strength] 500 mg Tablet 500 mg PO Q6H PRN Medical Decision Making Clinical consistent with otitis media on the left. Antibiotic was called into his pharmacy. Patient instructed on use of Tylenol or Motrin for the pain. HPI General Date/Time Provider Initiated Documentation: 06/10/23 14:10 . HPI Narrative: 28-year-old male presents to the emergency room with a chief complaint of left ear pain. The pain started couple days ago. Not associated with any fevers or chills. No nausea no vomiting. Some pain with swallowing. No change in voice. No drooling. No neck pain Related Data Home Medications Medication Instructions Recorded Confirmed acetaminophen 500 mg tablet 500 mg PO Q6H PRN 01/30/19 06/10/23 (Tylenol Extra Strength) magnesium oxide 500 mg capsule 500 mg PO DAILY #90 caps 12/09/22 06/10/23 cyclobenzaprine 10 mg tablet 10 mg PO HS PRN muscle spasm #20 05/11/23 06/10/23 tabs ibuprofen 600 mg tablet 600 mg PO TID PRN pain #180 tabs 05/11/23 06/10/23 Previous Rx's Medication Instructions Recorded magnesium oxide 500 mg capsule 500 mg PO DAILY #90 caps 12/09/22 cyclobenzaprine 10 mg tablet 10 mg PO HS PRN muscle spasm #20 05/11/23 tabs ibuprofen 600 mg tablet 600 mg PO TID PRN pain #180 tabs 05/11/23 Allergies Allergy/AdvReac Type Severity Reaction Status Date / Time No Known Allergies Allergy Verified 06/10/23 14:06 General Stated Complaint: EarProblem SUSY: 4 Review of Systems Narrative: 10 point review of system is negative unless otherwise specified in the HPI PFSH All Active Problems Migraine (Chronic) rare Vision changes (Acute) Low back pain (Acute) Morbid obesity with BMI of 50.0-59.9, adult (Acute) NAFLD (nonalcoholic fatty liver disease) (Acute) Acanthosis nigricans (Acute 11/21/17) Neck and abdomen Elevated blood pressure reading (Acute 11/21/17) 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 Hearing test pending. Learning disability (Acute 11/21/17) IEP Medical History (Updated 05/11/23 @ 14:40 by Garry Walden NP) Asthma As a young child. Not a current problem Obesity Family History Mother No problems noted. Father Essential hypertension Heart disease Grandfather Essential hypertension Heart disease Hyperlipidemia Myocardial infarction Grandfather No problems noted. Grandmother No problems noted. Grandmother No problems noted. Maternal History Diabetes Neoplasm colon and breast cancer Social History (Updated 05/13/23 @ 10:43 by Kari Abarca) Smoking/Tobacco Use Status: Never Second Hand Exposure: Yes Smoking risk assessment performed?: Yes Alcohol Intake: never Drug use: Never Substance use type: does not use Caregiver/Support person: No Household members: family Housing: house Communication Needs: None Do you need help understanding health information?: Never Pets and animals: Yes Pets and animals: cat(s) and dog(s) Sexually active: No Do you think of yourself as: bisexual Current gender identity: male What is your relationship status?: never How often do you talk on the phone with friends or family?: three or more times per week How often do you get together with friends or relatives?: three or more times per week How often do you attend nondenominational or advent services?: decline to answer Do you belong to any clubs or organized social groups?: no Panel score (0-1 are the most socially isolated patients): 1 What type of physical activity do you participate in: weight lifting and running Duration: 45-60 minutes/day Frequency: 5-6 times per week Rachael/Buddhist: No preference Special rachael needs: No Seatbelt use: always Drive 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 Left TM erythematous with loss of anatomic landmarks Nares: patent bilaterally Oral Cavity: moist Neck: Supple no nodes Respiratory Respiratory Effort: no dyspnea Auscultation: clear to auscultation bilaterally, normal breath sounds Cardiovascular Normal cap refill Abdomen Inspection and Palpation: soft, non-tender, non-distended, no hepatosplenomegaly Musculoskeletal System Joints, Bones, and Muscles: no deformities Extremities: warm and well-perfused, no cyanosis, capillary refill <2 seconds Skin Skin Inspection: no rash, no lesions, no bruising Neurological Motor: normal tone, normal strength, moving all extremities equally Psychiatric: good insight, good judgement, normal mood and affect Course Vital Signs Vital signs: Vital Signs Temperature 36.6 C 06/10/23 14:02 Pulse 77 06/10/23 14:02 Respiratory Rate 18 06/10/23 14:02 Blood Pressure 150/95 H 06/10/23 14:02 Pulse Oximetry 97 06/10/23 14:02 Temperature 36.6 C 06/10/23 14:02 Temperature Source Oral 06/10/23 14:02 Pulse 77 06/10/23 14:02 Respiratory Rate 18 06/10/23 14:02 Blood Pressure 150/95 H 06/10/23 14:02 Blood Pressure Position Sitting 06/10/23 14:02 Pulse Oximetry 97 06/10/23 14:02 Oxygen Delivery Method Room Air 06/10/23 14:02 Oxygen Flow Rate 0 06/10/23 14:02 Pain Level 7 06/10/23 14:02
== END 2023-06-10 14:27 | disposition home or self-care (01) ==
PROVIDERS: Emergency Provider Emergency Medicine; PCP Nurse Practitioner Family
DX: H66.92 Otitis media, unspecified, left ear (principal)
CPT/HCPCS: 99283; 99284

== ENCOUNTER 2024-02-20 05:17 | Outpatient (CLI) | payer MEDICAID, SELFPAY ==
[2024-02-20 12:30] LABS: HCT 49.2 % (40.0-50.0); HGB 17.1 g/dL (13.5-17.5); MCH 29.9 pg (27.0-33.0); MCHC 34.8 % (32.0-36.0); MCV 86 fL (80-95); MPV 10.6 fL (8.0-11.0); Platelet Count 187 10^3/uL (130-400); RBC 5.72 10^6/uL (4.36-5.78); RDW 13.4 % (11.8-14.1); RDW-SD 41.2 fL; WBC 5.27 10^3/uL (4.4-10.8)
[2024-02-20 13:14] LABS: Hemoglobin A1C 5.2 % (<5.7)
[2024-02-20 13:17] LABS: ALT 85 U/L (16-63); AST 34 U/L (15-37); Albumin 3.8 g/dL (3.4-5.0); Alkaline Phosphatase 91 U/L (46-116); Anion Gap 10.5 mmol/L (3-11); BUN 12 mg/dL (7-18); Bilirubin, Total 0.6 mg/dL (0.2-1.0); CO2 27.5 mmol/L (21.0-32.0); Calcium 9.6 mg/dL (8.5-10.1); Chloride 102 mmol/L (98-107); Estimated GFR 106.45 (mL/min/1.73m2); Glucose 82 mg/dL (74-106); Potassium 3.9 mmol/L (3.5-5.1); Sodium 140 mmol/L (136-145); TSH (W/Ref FT4) 1.47 uIU/mL (0.36-3.74); Total Protein 7.8 g/dL (6.4-8.2)
== END 2024-02-20 05:18 | disposition home or self-care (01) ==
LOC: LBO 05:17
PROVIDERS: PCP Nurse Practitioner Family; Visit Provider Nurse Practitioner Family
DX: I10 Essential (primary) hypertension (principal); Z13.1 Encounter for screening for diabetes mellitus
CPT/HCPCS: 36415; 80053; 85027; 83036; 84443

== ENCOUNTER → 2024-02-22 01:59 | Outpatient (CLI) | payer MEDICAID, SELFPAY ==
--- NOTE | 2024-02-22 06:00 | ETT_ITS ---
APPROVED REPORT Exam: Exercise Treadmill Patient Location: Out-Patient Room/Bed: Stress Nurse: Yessi Lundberg RN Ordering Provider:FATIMAH MARIN, Contact Number: [phone] BMI: 52.36 Baseline Rhythm: Sinus Rhythm Indications: Chest Pain Medical History Medical History: HTN, Migrains, low back pain, obesity, nonalcoholic fayy liver disease, learning dis ability, childhood asthma Cardiac Medications: Lisinopril (forgot to take this morning) Allergies: NKA Cardiac Risk Factors: +Family history, +HTN, Obesity, childhood asthma Previous Cardiac Procedures: None Pretest Chest Pain Characteristics: None Exercise History: Sedentary Physical Disabilities: None Lung Sounds: Distant, LCTA Heart Sounds: Regular, S1/S2 Stress Test Details Test: Exercise stress testing was performed using a Duane protocol. Rest Stress HR Resting HR Supine: 75 bpm Max Heart Rate (APMHR): 194 bpm Resting HR Standin bpm Target HR (85% APMHR): 165 bpm Max HR Achieved: 162 bpm % of APMHR: 84 Recovery HR: 93 bpm HR response to stress: Normal HR response to stress BP Resting BP Supine: 142/90 mmHg Resting BP Standin/88 mmHg Max BP: 150/58 mmHg Recovery BP: 144/62 mmHg BP response to stress: Normal blood pressure response to stress. ECG Resting ECG: Sinus Rhythm Ectopy: None Stress ECG: Sinus Tachycardia ST Change: No significant ST segment changes noted Arrhythmia: None Recovery ECG: Sinus Rhythm Recovery ST Change: No significant ST segment changes noted Recovery Arrhythmia: None Clinical Reason for Termination: Fatigue Stress Symptoms: General Fatigue Exercise duration: 4 min12 sec Highest Stage Reached: Stage 2: 2.5 mph at 12% grade. Exercise capacity: 6 METs Angina Score: None Davis Treadmill Score: 3.5 Rate Pressure Product: [id number] Stress ECG Conclusion 1. Resting EKG was normal 2. Patient exercised on Duane protocoll for 4 minutes and 12 seconds, workload of 6 METS 3. Rapid increase in heart rate with exercise. Patient achieved 85% predicted heart rate for age 4. There was no electrocardiographic evidence of myocardial ischemia 5. There were no dysrhythmias 6. Below average exercise capacity for age Davis Treadmill Score is 3.5 which is Moderate risk. Stress Test Summary STAGE Time (mins) Speed (mph) Grade (%) HR BP SpO2 SYMPTOMS METS Supine 75 142/90 98% Standing 82 132/88 1 3 1.7 10 148 4.5 2 6 2.5 12 156 7 1 min recovery 146 3 min recovery 117 150/58 6 min recovery 104 144/62 97% 9 min recovery 107 12 min recovery 94 Patient was unable to reach target heart rate due to fatigue and requested to stop test. It was diffi cult to obtain blood pressures on patient during stress due to body habitus and cuff size.
== END ==
PROVIDERS: PCP Nurse Practitioner Family; Visit Provider Nurse Practitioner Family
DX: R07.9 Chest pain, unspecified (principal)
CPT/HCPCS: 93017

== ENCOUNTER 2024-05-04 09:49 | Emergency (ER) | payer MEDICAID, SELFPAY ==
[2024-05-04 09:53] VITALS: BP 156/79; PULSE 99; RESP 18; TEMP 36.8; O2SAT 97
[2024-05-04 10:08] VITALS: BP 156/79; PULSE 99; RESP 18; TEMP 36.8; O2SAT 97
[2024-05-04] MEDS: Dexamethasone 10 MG/ML VIAL PO (10:45)
[2024-05-04 10:47] VITALS: BP 156/79; PULSE 99; RESP 18; TEMP 36.8; O2SAT 97
--- NOTE | 2024-05-04 14:51 | W.ED.GENAD ---
Discharge Plan Disposition Patient Disposition: Home Condition: Stable Discharge Details Clinical Impression: Acute tonsillitis, Acute ear pain Primary Care Provider: Garry Walden ED Provider: Jenny Morin Home Meds and New Rx's Prescriptions: Continued phentermine 15 mg capsule 15 mg PO DAILY Qty: 60 0RF Rx Instructions: Take 1 hour prior to breakfast ibuprofen 600 mg tablet 600 mg PO TID PRN (Reason: pain) Qty: 180 3RF magnesium oxide 500 mg capsule 500 mg PO DAILY Qty: 90 3RF lisinopril 10 mg tablet 10 mg PO DAILY Qty: 90 3RF cyclobenzaprine 10 mg tablet 10 mg PO HS PRN (Reason: muscle spasm) Qty: 90 1RF gabapentin 300 mg capsule 300 mg PO QHS Qty: 90 3RF acetaminophen [Tylenol Extra Strength] 500 mg Tablet 500 mg PO Q6H PRN Discharge Instructions Instructions: Pharyngitis (ED) Additional Instructions: Take Tylenol and ibuprofen as needed for pain Your strep test was negative Keep yourself hydrated at least eight 8 ounce glasses of water daily Please return should you develop fever, worsening discomfort, difficulty swallowing, worsening or persistent ear pain, or should any new concerns arise Referrals: Garry Walden, COUNTER INTELLIGENCE TECHNICIAN [Primary Care Provider] - Discharge Data Discharge Date/Time-TO BE ENTERED AT DEPARTURE: 05/04/24 10:48 HPI General Date/Time Provider Initiated Documentation: 05/04/24 10:03. HPI Narrative: This 28-year-old male presents with report of bilateral ear pain and sore throat. He states his symptoms started yesterday. He took some ibuprofen prior to arrival. He denies any fever or chills. Denies any rashes or lesions. Denies any known sick contacts. Denies fever or chills. States the pain is exacerbated with swallowing. States that ibuprofen has helped pain. Related Data Home Medications Medication Instructions Recorded Confirmed acetaminophen 500 mg tablet 500 mg PO Q6H PRN 01/30/19 05/04/24 (Tylenol Extra Strength) ibuprofen 600 mg tablet 600 mg PO TID PRN pain #180 tabs 10/06/23 05/04/24 lisinopril 10 mg tablet 10 mg PO DAILY #90 tabs 10/06/23 05/04/24 magnesium oxide 500 mg capsule 500 mg PO DAILY #90 caps 10/06/23 05/04/24 cyclobenzaprine 10 mg tablet 10 mg PO HS PRN muscle spasm #90 11/10/23 05/04/24 tabs gabapentin 300 mg capsule 300 mg PO QHS #90 caps 02/15/24 05/04/24 phentermine 15 mg capsule 15 mg PO DAILY #60 caps 03/14/24 05/04/24 Previous Rx's Medication Instructions Recorded ibuprofen 600 mg tablet 600 mg PO TID PRN pain #180 tabs 10/06/23 lisinopril 10 mg tablet 10 mg PO DAILY #90 tabs 10/06/23 magnesium oxide 500 mg capsule 500 mg PO DAILY #90 caps 10/06/23 cyclobenzaprine 10 mg tablet 10 mg PO HS PRN muscle spasm #90 11/10/23 tabs gabapentin 300 mg capsule 300 mg PO QHS #90 caps 02/15/24 phentermine 15 mg capsule 15 mg PO DAILY #60 caps 03/14/24 Allergies Allergy/AdvReac Type Severity Reaction Status Date / Time No Known Allergies Allergy Verified 05/04/24 09:57 General Stated Complaint: EarProblem SUSY: 4 Exam Narrative Exam Narrative: 28-year-old male alert and oriented, pupils equal round reactive to light and accommodation, oropharynx patent, uvula midline, tonsillar crypts noted on right, some mild swelling and erythema noted. Bilateral TMs without evidence of infection, currently intact, no mastoid tenderness, no fever. Lungs clear to auscultation. Course Vital Signs Vital signs: Vital Signs Temperature 36.8 C 05/04/24 09:53 Pulse 99 H 05/04/24 09:53 Respiratory Rate 18 05/04/24 09:53 Blood Pressure 156/79 H 05/04/24 09:53 Pulse Oximetry 97 05/04/24 09:53 Temperature 36.8 C 05/04/24 10:47 Temperature Source Temporal Artery Scan 05/04/24 10:08 Pulse 99 H 05/04/24 10:47 Respiratory Rate 18 05/04/24 10:47 Respiratory Effort Normal 05/04/24 10:08 Blood Pressure 156/79 H 05/04/24 10:47 Pulse Oximetry 97 05/04/24 10:47 Oxygen Delivery Method Room Air 05/04/24 10:08 Oxygen Flow Rate 0 05/04/24 09:53 Pain Level 3 05/04/24 10:08 Lab/Test Results Lab/Test Results: 05/04/24 10:26 Tonsil - Not Specified Group A Streptococcus Culture - Pending POC Strep Test-GRISELDA(Rapid) Start: 05/04/24 10:21 Freq: .Rapid Strep Test Status: Discharge Protocol: Document 05/04/24 10:33 [email or web address] (Rec: 05/04/24 10:37 [email or web address] [id number]) Strep test-GRISELDA(Rapid)-POC POC-Strep test-GRISELDA (Rapid) Negative POC-Strep test-GRISELDA (Rapid) Negative Medical Decision Making 28-year-old male presenting with report of sore throat and ear pain, suspect viral etiology of complaints, strep test negative in the emergency department, will give a single dose of Decadron and patient will continue on supportive care, ibuprofen and Tylenol at home. At time of my assessment there is no evidence of retropharyngeal or peritonsillar abscess. There is no evidence of obvious bacterial source of infection. 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 Hearing test pending. Learning disability (Acute 11/21/17) IEP Medical History Asthma As a young child. Not a current problem Obesity Family History Mother No problems noted. Father Essential hypertension Heart disease Grandfather Essential hypertension Heart disease Hyperlipidemia Myocardial infarction Grandfather No problems noted. Grandmother No problems noted. Grandmother No problems noted. Maternal History Diabetes Neoplasm colon and breast cancer Social History Smoking/Tobacco Use Status: Never Second Hand Exposure: Yes Smoking risk assessment performed?: Yes Alcohol Intake: never Drug use: Never Substance use type: does not use Caregiver/Support person: No Household members: family Housing: house Communication Needs: None Do you need help understanding health information?: Never Pets and animals: Yes Pets and animals: cat(s) and dog(s) Sexually active: No Do you think of yourself as: bisexual Current gender identity: male What is your relationship status?: never How often do you talk on the phone with friends or family?: three or more times per week How often do you get together with friends or relatives?: three or more times per week How often do you attend worship or latter day services?: decline to answer Do you belong to any clubs or organized social groups?: no Panel score (0-1 are the most socially isolated patients): 1 What type of physical activity do you participate in: weight lifting and running Duration: 45-60 minutes/day Frequency: 5-6 times per week Rachael/Jewish: No preference Special rachael needs: No Seatbelt use: always Drive intox or ride w/intox driver material handler: No Do you feel safe at home: Yes Do you feel safe in your relationship?: Yes
== END 2024-05-04 10:48 | disposition home or self-care (01) ==
PROVIDERS: Emergency Provider Physician Assistant; PCP Nurse Practitioner Family
DX: J03.90 Acute tonsillitis, unspecified (principal); H92.03 Otalgia, bilateral; I10 Essential (primary) hypertension
CPT/HCPCS: 99283; 87081; J1100

== ENCOUNTER 2024-07-25 04:52 | Outpatient (CLI) | payer MEDICAID, SELFPAY ==
[2024-07-25 12:39] LABS: ALT 62 U/L (16-63); AST 26 U/L (15-37); Albumin 3.7 g/dL (3.4-5.0); Alkaline Phosphatase 81 U/L (46-116); Anion Gap 6.1 mmol/L (3-11); BUN 12 mg/dL (7-18); Bilirubin, Total 0.47 mg/dL (0.2-1.0); CO2 29.9 mmol/L (21.0-32.0); CREATININE 1.1 mg/dL (0.70-1.30); Calcium 9.8 mg/dL (8.5-10.1); Chloride 103 mmol/L (98-107); Estimated GFR 94.36 (mL/min/1.73m2); Glucose 90 mg/dL (74-106); Magnesium 2.2 mg/dL (1.8-2.4); Potassium 3.5 mmol/L (3.5-5.1); Sodium 139 mmol/L (136-145); Total Protein 7.4 g/dL (6.4-8.2)
== END 2024-07-25 04:53 | disposition home or self-care (01) ==
LOC: LOS 04:52
PROVIDERS: PCP Nurse Practitioner Family; Visit Provider Nurse Practitioner Family
DX: R25.2 Cramp and spasm (principal)
CPT/HCPCS: 36415; 80053; 83735

== ENCOUNTER 2024-08-18 10:05 | Emergency (ER) | payer MEDICAID, SELFPAY ==
[2024-08-18 10:09] VITALS: BP 137/80; PULSE 103; RESP 16; TEMP 36.4; O2SAT 97
[2024-08-18 10:37] VITALS: BP 137/80; PULSE 72; RESP 18; TEMP 36.4; O2SAT 98
--- NOTE | 2024-08-18 11:05 | ED.GENADUL_ITS ---
Discharge Plan Disposition Patient Disposition: Home Condition: Stable Discharge Details Clinical Impression: COVID-19 Primary Care Provider: Garry Walden ED Provider: Kings Ruvalcaba Home Meds and New Rx's Prescriptions: New Paxlovid 300 mg (150 mg x 2)-100 mg tablets,dose pack See Rx Instructions .ROUTE .COMPLEX Qty: 30 0RF Rx Instructions: take TWO 150 mg tablets of nirmatrelvir with ONE 100 mg tablet of ritonavir twice daily for 5 days No Action ibuprofen 600 mg tablet 600 mg PO TID PRN (Reason: pain) Qty: 180 3RF magnesium oxide 500 mg capsule 500 mg PO DAILY Qty: 90 3RF lisinopril 10 mg tablet 10 mg PO DAILY Qty: 90 3RF cyclobenzaprine 10 mg tablet 10 mg PO HS PRN (Reason: muscle spasm) Qty: 90 1RF phentermine 30 mg capsule 30 mg PO DAILY Qty: 30 2RF Rx Instructions: Take 1 hour prior to breakfast gabapentin 300 mg capsule 600 mg PO BID Qty: 360 3RF acetaminophen [Tylenol Extra Strength] 500 mg Tablet 500 mg PO Q6H PRN Discharge Instructions Instructions: COVID-19 ED Additional Instructions: COVID testing today is positive. Since you are on day 4-5 of symptoms, you are within the window to start Paxlovid based on your risk factors. If you are unable to start this medication today, you would be outside of the window and it would not be beneficial to you. Prescription has been sent to the pharmacy. You can also take [id number]-[id number] medicine like Mucinex, Claritin, Flonase to help with your nasal congestion and other URI symptoms. Continue Motrin and Tylenol as needed for fever or bodyaches. Make sure to drink plenty of water. Follow-up with your PCP as needed. HPI General Date/Time Provider Initiated Documentation: 08/18/24 11:14 . Limitations to Documentation: no limitations . Information obtained by: patient . HPI Narrative: 29-year-old gentleman with past medical history of obesity, hypertension presents for evaluation of URI symptoms. Reports that symptoms have been ongoing for the last 4 days. Subjective fever, chills as well. Associated with nasal congestion, sore throat, no significant cough or shortness of breath. Reports that he had left ear pain and had a pop last night and that now his ear hurts more. He denies any drainage from that ear. He states that he did have to take a day off of work because he felt so bad. Related Data Home Medications ?Medication ?Instructions ?Recorded ?Confirmed acetaminophen 500 mg tablet 500 mg PO Q6H PRN 01/30/19 08/18/24 (Tylenol Extra Strength) ibuprofen 600 mg tablet 600 mg PO TID PRN pain #180 tabs 10/06/23 08/18/24 lisinopril 10 mg tablet 10 mg PO DAILY #90 tabs 10/06/23 08/18/24 magnesium oxide 500 mg capsule 500 mg PO DAILY #90 caps 10/06/23 08/18/24 cyclobenzaprine 10 mg tablet 10 mg PO HS PRN muscle spasm #90 11/10/23 08/18/24 tabs phentermine 30 mg capsule 30 mg PO DAILY #30 caps 07/04/24 08/18/24 gabapentin 300 mg capsule 600 mg (2 x 300 mg) PO BID #360 07/15/24 08/18/24 caps nirmatrelvir 300 mg (150 mg See Rx Instructions PO .COMPLEX 08/18/24 x2)-ritonavir 100 mg tablet,dose #30 dose pk pack (Paxlovid) Previous Rx's ?Medication ?Instructions ?Recorded ibuprofen 600 mg tablet 600 mg PO TID PRN pain #180 tabs 10/06/23 lisinopril 10 mg tablet 10 mg PO DAILY #90 tabs 10/06/23 magnesium oxide 500 mg capsule 500 mg PO DAILY #90 caps 10/06/23 cyclobenzaprine 10 mg tablet 10 mg PO HS PRN muscle spasm #90 11/10/23 tabs phentermine 30 mg capsule 30 mg PO DAILY #30 caps 07/04/24 gabapentin 300 mg capsule 600 mg (2 x 300 mg) PO BID #360 07/15/24 caps nirmatrelvir 300 mg (150 mg See Rx Instructions PO .COMPLEX 08/18/24 x2)-ritonavir 100 mg tablet,dose #30 dose pk pack (Paxlovid) Allergies Allergy/AdvReac Type Severity Reaction Status Date / Time No Known Allergies Allergy Verified 08/18/24 10:11 General Stated Complaint: RespSymp SUSY: 4 Exam Narrative Exam Narrative: review of Systems: All systems reviewed & are unremarkable except as noted in HPI and below Well-developed, no acute distress NCAT + Nasal congestion PERRL, normal conjunctiva Bilateral TMs with clear effusion, TMs are intact Mild oropharynx erythema without tonsillar enlargement or exudate Mild shotty cervical adenopathy RRR Unlabored respiratory effort clear bilaterally Course Vital Signs Vital signs: Vital Signs Temperature 36.4 C L 08/18/24 10:09 Pulse 103 H 08/18/24 10:09 Respiratory Rate 16 08/18/24 10:09 Blood Pressure 137/80 08/18/24 10:09 Pulse Oximetry 97 08/18/24 10:09 Temperature 36.4 C L 08/18/24 10:37 Pulse 72 08/18/24 10:37 Respiratory Rate 18 08/18/24 10:37 Respiratory Effort Normal 08/18/24 10:23 Respiratory Depth Normal 08/18/24 10:23 Blood Pressure 137/80 08/18/24 10:37 Pulse Oximetry 98 08/18/24 10:37 Pain Level 5 08/18/24 10:37 Lab/Test Results Lab/Test Results: POC Strep Test-GRISELDA(Rapid) Start: 08/18/24 10:20 Freq: .Rapid Strep Test Status: Active Protocol: Document 08/18/24 10:50 (Rec: 08/18/24 10:50 [id number]) Strep test-GRISELDA(Rapid)-POC POC-Strep test-GRISELDA (Rapid) Negative POC-Strep test-GRISELDA (Rapid) Negative Medical Decision Making Emergent evaluation of URI symptoms. Physical examination does not reveal signs of obvious infection like otitis media or strep pharyngitis. Is TM is intact and not ruptured as he suspected. He does have some fluid behind his ear. Viral testing was obtained including COVID and flu. His [id number] strep test is negative. He is outside the window for TAMIflu if those tests are positive. He has no respiratory symptoms so do not feel a chest x-ray is indicated at this time. COVID testing is positive. Since he is within the 5-day window and does have high risk factors including hypertension and obesity, will prescribe Paxlovid. It is unclear if the patient will be able to get this medication from the [facility] today and he was advised that if he is unable to get this medication today, getting it later would be outside of the window and would likely not be effective, so I recommend that he also start additional medications for supportive care like Mucinex and Flonase. Recommend close follow-up with PCP as needed for any ongoing symptoms. Return precautions advised. 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 Hearing test pending. Learning disability (Acute 11/21/17) IEP Medical History Asthma As a young child. Not a current problem Obesity Family History Mother No problems noted. Father Essential hypertension Heart disease Grandfather Essential hypertension Heart disease Hyperlipidemia Myocardial infarction Grandfather No problems noted. Grandmother No problems noted. Grandmother No problems noted. Maternal History Diabetes Neoplasm colon and breast cancer Social History Smoking/Tobacco Use Status: Never Second Hand Exposure: Yes Smoking risk assessment performed?: Yes Alcohol Intake: never Drug use: Never Substance use type: does not use Adopted: No Caregiver/Support person: No Household members: family Housing: house Communication Needs: None Education Level: college Do you need help understanding health information?: Never current occupation: cashier gambling Pets and animals: Yes Pets and animals: cat(s) and dog(s) Sexually active: No Do you think of yourself as: bisexual Current gender identity: male What is your relationship status?: never How often do you talk on the phone with friends or family?: three or more times per week How often do you get together with friends or relatives?: three or more times per week How often do you attend rastafarian or rastafari services?: decline to answer Do you belong to any clubs or organized social groups?: decline to answer Panel score (0-1 are the most socially isolated patients): 1 What type of physical activity do you participate in: weight lifting and running Duration: 30-45 minutes/day Frequency: 3-4 times per week Rachael/Protestant: No preference Special rachael needs: No Seatbelt use: always Drive intox or ride w/intox cab driver: No Do you feel safe at home: Yes Do you feel safe in your relationship?: Yes
[2024-08-18 11:10] LABS: Influenza A PCR Negative (Negative); Influenza B PCR Negative (Negative); RSV PCR Negative (Negative)
[2024-08-18 11:12] LABS: Source Nasopharynx
[2024-08-18 11:13] LABS: COVID-19 PCR Positive (Negative)
== END 2024-08-18 11:25 | disposition home or self-care (01) ==
PROVIDERS: Emergency Provider Emergency Medicine; PCP Nurse Practitioner Family
DX: U07.1 COVID-19 (principal); I10 Essential (primary) hypertension
CPT/HCPCS: 87637; 87880; 99283